=== PATIENT | female | born 2000 | race African-American/Black ===

== ENCOUNTER 2023-08-01 17:14 | Emergency (ER) | payer OTHER ==
[~2023-08-01] VITALS: Ht 175.3 cm; Wt 79.6 kg
[2023-08-01 17:36] LABS: BILIRUBIN, URINE NEGATIVE (negative); BLOOD/HGB, URINE TRACE-I (Negative); KETONE, URINE NEGATIVE (Negative); LEUK ESTERASE, URINE SMALL (negative); NITRITE, URINE NEGATIVE (negative)
[2023-08-01 17:46] LABS: BACTERIA, URINE RARE /hpf (negative); CASTS, URINE NONE SEEN \\lpf; COLLECTION TYPE, URINE CLEAN CATCH; CRYSTALS, URINE NONE SEEN (0-1+); EPITHELIAL CELLS, URINE SQUAMOUS 2+ /lpf (0-1+); REFLEX CULTURE, URINE No (No); WHITE BLOOD CELLS, URINE 21-40 /HPF (0-5)
[2023-08-01] MEDS ORDERED: BACTRIM DS TAB1 EACH PO (17:51)
[2023-08-01 18:05] VITALS: BP 140/82
== END 2023-08-01 18:05 | disposition home or self-care (01) ==
LOC: ED 17:14
PROVIDERS: Internal Medicine
DX: N39.0 Urinary tract infection, site not specified (principal)
CPT/HCPCS: 81001; 84703; A9270

== ENCOUNTER 2023-08-24 20:55 | Emergency (ER) | payer OTHER ==
[~2023-08-24] VITALS: Ht 175.3 cm; Wt 83.3 kg
[~2023-08-24 20:55] MED LIST: BACTRIM DS TAB1 EACH PO
--- OUTSIDE RECORDS SUMMARY | 2023-08-24 20:59 | XMS ---
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 PHONE: [phone] JANICE [facility] PHONE: [phone] Ana Hitchcock Nurse Practitioner: [facility] PHONE: Unknown Sonya has no Care Guidelines for this patient. Jodie VISIT COUNT (12 MO.) 3 [facility] TOTAL 6 NOTE: Visits indicate total known visits. ED/UCC VISIT TRACKING (12 MO.) 08/24/2023 20:56 [facility] [place] TYPE: Emergency COMPLAINT: - REACTION TO MEDICATION 08/24/2023 08:22 [facility] [place] TYPE: Emergency DIAGNOSES: - Adverse effect of unspecified drugs, medicaments and biological substances, initial encounter - ALLERGIC REACTION 08/15/2023 16:34 [employer] [facility] [place] TYPE: Emergency DIAGNOSES: - Acute vaginitis - Other specified bacterial agents as the cause of diseases classified elsewhere - abd pain 08/01/2023 17:15 [facility] [place] TYPE: Emergency COMPLAINT: - UTI DIAGNOSES: - Urinary tract infection, site not specified 05/17/2023 18:08 [facility] TYPE: Emergency DIAGNOSES: - Acute vaginitis - Antepartum hemorrhage, unspecified, unspecified trimester - Other specified bacterial agents as the cause of diseases classified elsewhere - Pelvic and perineal pain 03/27/2023 07:46 [facility] [place] TYPE: Emergency DIAGNOSES: - Constipation, unspecified - Unspecified ovarian cyst, right side - ABD PAIN INPATIENT VISIT TRACKING (12 MO.) No inpatient visits to display in this time frame [id number]
[2023-08-24] MEDS ORDERED: PREDNISONE20 MG PO (21:56)
[2023-08-24] MEDS ORDERED: PEPCID20 MG PO (22:06)
[2023-08-24 23:45] VITALS: BP 139/91
== END 2023-08-24 23:45 | disposition home or self-care (01) ==
LOC: ED 20:55
DX: L50.9 Urticaria, unspecified (principal); Z79.899 Other long term (current) drug therapy
CPT/HCPCS: J1100; Q0163